=== PATIENT | female | born 1985 | race Caucasian/White ===

== ENCOUNTER 2022-03-16 19:44 | Emergency (ER) | payer BC, OTHER ==
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
[2022-03-16 20:51] VITALS: BP 132/78; PULSE 68; O2SAT 98
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
== END 2022-03-16 21:01 | disposition home or self-care (01) ==
LOC: ED 19:44
DX: S80.212A Abrasion, left knee, initial encounter (principal); S80.02XA Contusion of left knee, initial encounter; V89.2XXA Person injured in unspecified motor-vehicle accident, traffic, initial encounter; M25.562 Pain in left knee
CPT/HCPCS: 73560; 73590; 99285